=== PATIENT | female | born 1935 | race Hispanic/Latino ===

== ENCOUNTER 2016-04-07 07:23 | Emergency (ER) | payer MEDICARE, OTHER ==
[2016-04-07 08:29] VITALS: BP 151/85
--- NOTE | 2016-04-07 09:01 | Emergency Department Report ---
HPI - General Chief Complaint: Nausea/Vomiting/Diarrhea Time Seen by Provider: 04/07/16 08:55 - HPI HPI: Chief complaint: Nausea vomiting and diarrhea HPI: Patient is an 81-year-old female states 3 days ago she began having nausea vomiting and diarrhea. States every time she vomited she had a watery diarrhea was vomiting 5-10 times a day. Patient states she's had diarrhea 4 today and it is watery. Vomiting has improved. Patient denies fever states early on she had some crampy abdominal pain that is now gone. Patient continues to have nausea. Patient states she's started feeling weak and dizzy on standing can decide to come into the emergency department. Patient states 2 weeks ago she took a Z-Hoang for an upper respiratory infection. Patient has history of hypertension and high hypothyroidism. Patient is status post cholecystectomy, hysterectomy and appendectomy. Mode of arrival: EMS Source: Patient Began: 3 days ago Duration: See above Context: Patient states she does not think she ate anything to give her food poisoning Quality: Cramping abdominal pain Severity: Currently 0 out of 10 Improved with: Nothing Worsened with: Nothing Associated signs and symptoms: See above ED Past Medical Hx - Past Medical History Hx Hypertension: Yes (FOR 15 YRS) Hx Renal Disease: No Hx Arthritis: Yes Hx Headaches / Migraines: Yes - Surgical History Hx Cholecystectomy: Yes Hx Appendectomy: Yes Hx Breast Surgery: Yes (LUMPECTOMY IN 1995, LEFT BREAST BX IN 1995 & RIGHT 2012) Additional Surgical History: Hysterectomy - Social History Smoking Status: Former Smoker Substance Use Type: None - Medications Home Medications: Home Medications Medication Instructions Recorded Confirmed Last Taken Type Levothyroxine [Synthroid] 88 mcg PO QDAY 03/11/13 04/07/16 04/07/16 History Carvedilol [Coreg] 12.5 mg PO BID 04/07/16 04/07/16 04/07/16 History Losartan [Cozaar] 50 mg PO QDAY 04/07/16 04/07/16 04/07/16 History Ondansetron [Zofran Odt] 4 mg PO Q4H PRN #7 tab.rapdis 04/07/16 Unknown Rx ED Review of Systems ROS: Stated complaint: N/V WEAKNESS Other details as noted in HPI ROS Constitutional: No fever ENT: No uri symptoms Cardiovascular: No chest pain Respiratory: No sob or cough GI: See HPI : No dysuria frequency or urgency, Skin: No rash Neuro: No focal weakness or numbness Psych: No depression Miguel Angel/lymph: No edema Physical Exam - Physical Exam Vital Signs: Vital Signs 04/07/16 08:12 Temperature 98.1 F Pulse Rate 55 L Respiratory 16 Rate Blood Pressure 151/85 O2 Sat by Pulse 97 Oximetry Physical Exam: GENERAL: The patient is well-developed well-nourished . HEENT: Normocephalic. Atraumatic. Extraocular motions are intact. Patient has moist mucous membranes. NECK: Supple. No meningitic signs are noted. There is no adenopathy noted. CHEST/LUNGS: Clear to auscultation. There is no respiratory distress noted. HEART/CARDIOVASCULAR: Regular. There is no tachycardia. There is no gallop rub or murmur. ABDOMEN: Abdomen is soft, nontender. Patient has normal bowel sounds. There is no abdominal distention. SKIN: There is no rash. There is no edema. There is no diaphoresis. NEURO: The patient is awake, alert, and oriented. The patient is cooperative. The patient has no focal neurologic deficits. The patient has normal speech. MUSCULOSKELETAL: There is no tenderness or deformity. There is no limitation range of motion. There is no evidence of acute injury. ED Course Vital Signs 04/07/16 08:12 Temperature 98.1 F Pulse Rate 55 L Respiratory 16 Rate Blood Pressure 151/85 O2 Sat by Pulse 97 Oximetry - Reevaluation(s) Reevaluation #1: 04/07/16 10:50 Patient given 1 L normal saline, Zofran, Protonix. Reevaluation #2: 04/07/16 12:50 Patient given a second liter of IV fluid and feels much improved and is ready to go home. Patient has had no nausea vomiting or diarrhea here in the emergency department. Patient's son is here with her to take her home. ED Medical Decision Making - Lab Data Result diagrams: 04/07/16 09:13 04/07/16 09:13 Laboratory Tests 04/07/16 Unknown Ur Leukocyte Esterase Negative Urine WBC (Auto) 1.0 Urine RBC (Auto) 4.0 U Epithel Cells (Auto) 3.0 Urine Bacteria (Auto) 1+ Critical care attestation.: If time is entered above; I have spent that time in minutes in the direct care of this critically ill patient, excluding procedure time. ED Disposition Clinical Impression: Gastroenteritis Disposition: DISCHARGED TO HOME OR SELFCARE Is pt being admited?: No Does the pt Need Aspirin: No Condition: Stable Instructions: Gastroenteritis (ED) Prescriptions: Ondansetron [Zofran Odt] 4 mg PO Q4H PRN #7 tab.rapdis PRN Reason: Nausea And Vomiting Referrals: PRIMARY CARE, [Primary Care Provider] - 3-5 Days Time of Disposition: 12:51
[2016-04-07] MEDS ORDERED: PROTONIX IV ONE (09:02)
[2016-04-07] MEDS ORDERED: ZOFRAN IV ONE (09:02)
[2016-04-07] MEDS ORDERED: NACL 0.9% 1000 ML IV ONE (09:02)
[2016-04-07 09:43] LABS: Hematocrit 35.8 % (30.3-42.9); Hemoglobin 12.4 gm/dl (10.1-14.3); Mean Corpuscular HGB Conc 35 % (30-34); Mean Corpuscular Hemoglobin 30 pg (28-32); Mean Corpuscular Volume 87 fl (79-97); Platelet Count 167 K/mm3 (140-440); Red Cell Distribution Width 13.1 % (13.2-15.2); White Blood Count 4.9 K/mm3 (4.5-11.0)
[2016-04-07 09:47] LABS: Alanine Aminotransferase 14 units/L (7-56); Albumin 3.8 g/dL (3.9-5); Albumin/Globulin Ratio 1.2 %; Alkaline Phosphatase 84 units/L (35-129); Anion Gap 14 mmol/L; Bilirubin,Direct 0.2 mg/dL (0-0.2); Bilirubin,Indirect 1.2 mg/dL; Bilirubin,Total 1.4 mg/dL (0.1-1.2); Blood Urea Nitrogen 18 mg/dL (7-17); Calcium 8.5 mg/dL (8.4-10.2); Carbon Dioxide 25 mmol/L (22-30); Glucose 84 mg/dL (65-100); Lipase 35 units/L (13-60); Potassium 4.2 mmol/L (3.6-5.0); Sodium 138 mmol/L (137-145); Total Protein 7.1 g/dL (6.3-8.2)
[2016-04-07 11:12] LABS: Anisocytosis 1+; Basophils % (Manual) 0 % (0.0-1.8); Blastocytes % (Manual) 0 %; Diff Status Complete
[2016-04-07] MEDS ORDERED: NACL 0.9% 1000 ML 1,000 ML IV ONE (11:34)
[2016-04-07] MEDS ORDERED: NACL 0.9% 1000 ML 1,000 ML ONE (11:34)
[2016-04-07 11:46] LABS: Bacteria,Urine 1+ /HPF (Negative); Mucus,Urine FEW /HPF
[2016-04-07 12:22] LABS: Bilirubin,Urine Negative (Negative); Ketones,Urine Negative (Negative)
[2016-04-07 12:23] LABS: Blood,Urine Trace (Negative); Leukocyte Esterase,Urine Negative (Negative); Nitrite,Urine Negative (Negative); Protein,Urine <30 mg dL mg/dL (Negative); Urobilinogen,Urine < 2.0 mg/dL (<2.0)
[2016-04-07] MEDS ORDERED: IMODIUM ONE (13:06)
[2016-04-07] MEDS ORDERED: IMODIUM PO ONE (13:10)
== END 2016-04-07 13:36 | disposition home or self-care (01) ==
LOC: ED 07:23
DX: K52.9 Noninfective gastroenteritis and colitis, unspecified (principal); I10 Essential (primary) hypertension; M19.90 Unspecified osteoarthritis, unspecified site; G43.909 Migraine, unspecified, not intractable, without status migrainosus; Z87.891 Personal history of nicotine dependence; Z90.49 Acquired absence of other specified parts of digestive tract; Z90.89 Acquired absence of other organs
CPT/HCPCS: 36415; 80048; 80074; 81001; 83690; 85007; 85025; 96361; 96374; 96375; 99284; C9113; J2405; J7030